=== PATIENT | female | born 1980 | race Caucasian/White ===

== ENCOUNTER 2018-11-14 11:09 | Outpatient (CLI) | payer OTHER | END 2018-11-14 11:10 | disposition home or self-care (01) | LOC: C.LAB 11:09 | DX: E04.1 Nontoxic single thyroid nodule (principal) ==

== ENCOUNTER 2018-11-18 14:40 | Outpatient (CLI) | payer SELFPAY, OTHER | END 2018-11-18 14:41 | disposition home or self-care (01) | LOC: C.USIC 14:40 ==

== ENCOUNTER 2018-11-19 19:33 | Outpatient (CLI) | payer SELFPAY | END 2018-11-19 19:34 | disposition home or self-care (01) | LOC: C.SLEEP 19:33 ==